=== PATIENT | male | born 1985 | race Caucasian/White ===

== ENCOUNTER 2021-10-25 19:27 | Inpatient (IN) ==
[2021-10-25 19:44] LABS: Basophils # (auto) 0.04 K/uL (0-0.2); Basophils % (auto) 0.3 %; Eosinophils # (auto) 0.13 K/uL (0-0.5); Eosinophils % (auto) 1.1 %; Hemoglobin 14.6 g/dL (14.0-18.0); Immature Granulocytes # (auto) 0.03 K/uL (0.00-0.02); Immature Granulocytes % (auto) 0.3 %; Lymphocytes # (auto) 2.13 K/uL (1.2-3.4); Lymphocytes % (auto) 18.1 %; Mean Corpuscular Hemoglobin 31.1 pg (25-34); Mean Corpuscular Volume 91.5 fL (80-100); Mean Platelet Volume 9.2 fL (7.4-10.4); Monocytes # (auto) 0.95 K/uL (0.11-0.59); Monocytes % (auto) 8.1 %; Neutrophils # (auto) 8.46 K/uL (1.4-6.5); Neutrophils % (auto) 72.1 %; Platelet Count 321 K/uL (130-400); RDW Coefficient of Variation 12.1 % (11.5-14.5); RDW Standard Deviation 41.3 fL (36.4-46.3); White Blood Count 11.74 K/uL (4.8-10.8)
[2021-10-25] MEDS ORDERED: SODIUM CHLORIDE 0.9% 1000ML 1,000 ML IV ONE (19:51)
[2021-10-25] MEDS ORDERED: MoRPHine SULFATE 4 MG/ML 1 ML CARP\\VIAL IV STA (19:51)
--- NOTE | 2021-10-25 19:54 | Emergency Department Note ---
Impression & Plan Acute diverticulitis, Intra-abdominal abscess ADMIT ED Provider Note Patient arrived to the ED via PRIVATE TRANSPORT HPI: The patient is a 35-year-old male who presents the emergency department the chief complaint of lower abdominal pain is been ongoing for the past week and a half. Patient states he does have a history of diverticulitis, states this pain feels similar to diverticulitis flare that he has had in the past. He states he previously has had complications including intra-abdominal abscess that did not require any surgical intervention, states he was treated with IV antibiotics at that time. Patient denies any nausea or vomiting, denies any diarrhea. Denies any chest pain or shortness of breath. On arrival here to the ED he is hemodynamically stable, he is saturating well on room air on my initial assessment, he is afebrile. ROS: -GI: Lower abdominal pain *10 point review systems was conducted and is otherwise negative unless stated above *Outpatient medications and allergy history reviewed PE: General: Alert, NAD HEENT: Normocephalic, atraumatic, trachea midline Eyes: Extraocular eye movement is intact, no scleral erythema Pulmonary: Clear to auscultation bilaterally, no wheezing Cardio: Regular rate and rhythm GI: Abdomen is tender to palpation in the lower abdomen bilaterally, there is guarding without rigidity : No suprapubic tenderness MSK: No evidence of trauma or malformation of the extremities, no edema Skin: No evidence of rash Neuro: Alert, no focal deficits Psychiatric: Cooperative residential fee appraiser: - An order was placed for continuous cardiac monitoring - Patient was noted to be in sinus rhythm with rate of 95 Medical Decision Making: Patient presented with lower abdominal pain, he does have a history of diverticulitis, he is uncomfortable on exam with tenderness in the lower abdomen. Labwork shows evidence of a very mild leukocytosis, there is no acute kidney injury, no transaminitis, hemoglobin is stable. There are no critical electrolyte abnormalities. Interventions included IV fluid, IV analgesia with morphine, IV Zosyn. Imaging was obtained including CT imaging of the abdomen and pelvis with contrast and unfortunately does show evidence of diverticulitis flare of the sigmoid colon with apparent perforation with a locule of gas and fluid reflecting a possible abscess. On re-evaluation the patient is still hemodynamically stable, he tells me his pain is improved following IV analgesia case was discussed with on-call general surgery midlevel provider, Hardeep Hernandez, who evaluated the patient at the bedside. Patient will be admitted to the surgical service for further care and continuation of IV antibiotics and evaluation for possible surgical intervention. Patient was admitted under the service of Dr. Kalen Ureña for further care. Diagnosis: 1. Acute diverticulitis flare with perforation and abscess 2. Leukocytosis 3. Abdominal pain Disposition: Admission [facility] PradhanDO Emergency Medicine Past Med/Surg History Social History Smoking Status: Current every day smoker Feels Safe at Home: Yes Allergies Allergies Allergy/AdvReac Type Severity Reaction Status Date / Time No Known Allergies Allergy Unverified 05/04/20 09:03 Results & Data (ED) Vital Signs Vital Signs - 24 hr 10/25/21 19:28 10/25/21 19:47 Temperature 36.9 C Temperature Source Temporal Artery Scan Pulse Rate 104 H Pulse Rate [Finger] 96 H Respiratory Rate 18 20 Respiratory Effort / Characteristics Non-Labored Spontaneous Respiratory Depth Normal Blood Pressure 168/88 H Blood Pressure [Right Arm] 154/106 H Blood Pressure Mean 114 Blood Pressure Mean [Right Arm] 122 Pulse Oximetry 99 99 Oxygen Delivery Method Room Air Room Air Sepsis Recent Fever Within 48 Hours No Sepsis New/Unexplained Change in Mental Status No Sepsis Action Taken by Nursing No Action Required Laboratory Data Result diagrams: 10/25/21 19:34 10/25/21 19:34 Lab Results 10/25/21 10/25/21 10/25/21 Range/Units 19:34 19:34 19:51 WBC 11.74 H (4.8-10.8) K/uL RBC 4.70 (4.7-6.1) M/uL Hgb 14.6 (14.0-18.0) g/dL Hct 43.0 (42-52) % MCV 91.5 (80-100) fL MCH 31.1 (25-34) pg MCHC 34.0 (32-36) g/dL RDW Std Deviation 41.3 (36.4-46.3) fL RDW Coeff of Kyle 12.1 (11.5-14.5) % Plt Count 321 (130-400) K/uL MPV 9.2 (7.4-10.4) fL Immature Gran % (Auto) 0.3 % Neut % (Auto) 72.1 % Lymph % (Auto) 18.1 % Gilliam % (Auto) 8.1 % Eos % (Auto) 1.1 % Baso % (Auto) 0.3 % Neut # (Auto) 8.46 H (1.4-6.5) K/uL Lymph # (Auto) 2.13 (1.2-3.4) K/uL Gilliam # (Auto) 0.95 H (0.11-0.59) K/uL Eos # (Auto) 0.13 (0-0.5) K/uL Baso # (Auto) 0.04 (0-0.2) K/uL Immature Gran # (Auto) 0.03 H (0.00-0.02) K/uL Sodium 142 (136-145) mmol/L Potassium 4.1 (3.5-5.1) mmol/L Chloride 109 H (98-107) mmol/L Carbon Dioxide 29 (21-32) mmol/L Anion Gap 5.0 (3-11) BUN 22 H (7-18) mg/dl Creatinine 0.82 (0.6-1.4) mg/dl Est Cr Clr Drug Dosing 128.6 ml/min Est GFR ( Amer) 131.9 ml/min Est GFR (Non-Af Amer) 113.8 ml/min BUN/Creatinine Ratio 26.7 H (10-20) Glucose 93 (70-99) mg/dl Calcium 9.2 (8.5-10.1) mg/dl Total Bilirubin 0.4 (0.2-1) mg/dl AST 13 L (15-37) U/L ALT 24 (12-78) Alkaline Phosphatase 73 (45-117) U/L Total Protein 7.6 (6.4-8.2) gm/dl Albumin 3.7 (3.4-5.0) gm/dl Globulin 3.9 (2.5-4.0) gm/dl Albumin/Globulin Ratio 0.9 (0.9-2) Lipase 66 L (73-393) U/L Urine Color Yellow Urine Appearance Clear (Clear) Urine pH 7.0 (4.5-7.5) Ur Specific [place] 1.022 (1.000-1.030) Urine Protein Negative (Negative) Urine Glucose (UA) Negative (Negative) Urine Ketones Negative (Negative) Urine Blood 1+ H (Negative) Urine Nitrite Negative (Negative) Urine Bilirubin Negative (Negative) Urine Urobilinogen Negative (Negative) Ur Leukocyte Esterase Negative (Negative) Urine WBC (Auto) 1-5 (0-5) /hpf Urine RBC (Auto) 5-10 H (0-4) /hpf U Hyaline Cast (Auto) 0 (0-5) /lpf U Epithel Cells (Auto) 5-10 H (0-5) /lpf Urine Bacteria (Auto) Negative (Negative) Administered Medications Discontinued Medications Sodium Chloride (Nss 1000ml) 1,000 mls @ 999 mls/hr IV .Q1H1M ONE Stop: 10/25/21 20:51 Last Admin: 10/25/21 20:00 Dose: 999 mls/hr Documented by: [id number] Ioversol (Optiray 320 100ml) 94 ml IV ONCE ONE Stop: 10/25/21 20:15 Last Admin: 10/25/21 20:14 Dose: 94 ml Documented by: [id number] Morphine Sulfate (Morphine Sulfate 4 Mg/Ml 1 Ml Carp\Vial) 4 mg IV NOW STA Stop: 10/25/21 19:52 Last Admin: 10/25/21 20:00 Dose: 4 mg Documented by: [id number] Imaging Data Radiologist's Impression: Abdomen/Pelvis CT 10/25/21 19:51 CT abd pelvis IV con only CLINICAL HISTORY: Lower abdominal pain x1 week, history of DV TECHNIQUE: Helical axial images of the abdomen and pelvis were obtained and displayed. Automated dose lowering techniques and/or adjustment according to patient size were utilized for this exam. This exam was performed with intraven ous contrast. COMPARISON: None available at the time of this dictation. FINDINGS: Lower chest: No acute abnormality Liver: Unremarkable. No focal lesions are seen. Gallbladder and biliary tree: Patient is status post cholecystectomy. Physiologic prominence of the biliary ducts is noted. Pancreas: Pancreatic duct is mildly prominent measuring 3 mm in diameter. Spleen: Unremarkable. Adrenals: Unremarkable. Kidneys and ureters: Unremarkable. Bladder: Unremarkable. Reproductive organs: Unremarkable. Bowel: There is wall thickening about the sigmoid colon. There is a collection of gas and fluid adjacent to the sigmoid colon with surrounding fat stranding. Lymph nodes Retroperitoneal: Unremarkable. Mesenteric: Unremarkable. Pelvic: Unremarkable. Peritoneum: Normal. No evidence of pneumoperitoneum. Vessels: Unremarkable. Abdominal wall: A fat-containing umbilical hernia is seen. Bones: Unremarkable. IMPRESSION: Sigmoid diverticulitis. Collection of gas and fluid adjacent to the sigmoid colon may reflect perforation and abscess formation. ACT 112: Negative or not required by law. Electronically signed by: Samm Sánchez M.D. 10/25/2021 8:31 PM Discharge Plan Visit Data Chief Complaint: Abdominal Pain Stated Complaint: ABD PAIN ED Provider: Morro Pradhan Discharge Problem: Acute diverticulitis, Intra-abdominal abscess Forms Stand Alone Forms: [facility] Referrals Referrals: Pro,Leonel Wood MD [Primary Care Provider] -
[2021-10-25 20:01] LABS: Albumin Level 3.7 gm/dl (3.4-5.0); BUN Creatinine Ratio 26.7 (10-20); Calcium 9.2 mg/dl (8.5-10.1); Creatinine Clr Calc Pharmacy 128.6 ml/min; Est GFR (African American) 131.9 ml/min; Est GFR (Non-African American) 113.8 ml/min; Potassium 4.1 mmol/L (3.5-5.1)
[2021-10-25 20:02] LABS: Appearance Urine Clear (Clear); Bacteria Urine Automated Negative (Negative); Bilirubin Urine Negative (Negative); Blood Urine 1+ (Negative); Cast Urine Automated 0 /lpf (0-5); Color Urine Yellow; Glucose Urine UA Negative (Negative); Ketones Urine Negative (Negative); Leukocyte Esterase Urine Negative (Negative); Nitrite Urine Negative (Negative); Protein Urine Negative (Negative); Specific Gravity Urine 1.022 (1.000-1.030); Urobilinogen Urine Negative (Negative)
[2021-10-25 20:04] LABS: Albumin Globulin Ratio 0.9 (0.9-2); Bilirubin,Total 0.4 mg/dl (0.2-1); Globulin 3.9 gm/dl (2.5-4.0); Total Protein 7.6 gm/dl (6.4-8.2)
[2021-10-25] MEDS ORDERED: OPTIRAY 320 100ml IV ONE (20:14)
--- NOTE | 2021-10-25 20:32 | CT Scan Report ---
CT abd pelvis IV con only CLINICAL HISTORY: Lower abdominal pain x1 week, history of DV TECHNIQUE: Helical axial images of the abdomen and pelvis were obtained and displayed. Automated dose lowering techniques and/or adjustment according to patient size were utilized for this exam. This e xam was performed with intravenous contrast. COMPARISON: None available at the time of this dictation. FINDINGS: Lower chest: No acute abnormality Liver: Unremarkable. No focal lesions are seen. Gallbladder and biliary tree: Patient is status post cholecystectomy. Physiologic prominence of the b iliary ducts is noted. Pancreas: Pancreatic duct is mildly prominent measuring 3 mm in diameter. Spleen: Unremarkable. Adrenals: Unremarkable. Kidneys and ureters: Unremarkable. Bladder: Unremarkable. Reproductive organs: Unremarkable. Bowel: There is wall thickening about the sigmoid colon. There is a collection of gas and fluid adjac ent to the sigmoid colon with surrounding fat stranding. Lymph nodes Retroperitoneal: Unremarkable. Mesenteric: Unremarkable. Pelvic: Unremarkable. Peritoneum: Normal. No evidence of pneumoperitoneum. Vessels: Unremarkable. Abdominal wall: A fat-containing umbilical hernia is seen. Bones: Unremarkable. IMPRESSION: Sigmoid diverticulitis. Collection of gas and fluid adjacent to the sigmoid colon may reflect perfora tion and abscess formation. ACT 112: Negative or not required by law. Electronically signed by: Samm Sánchez M.D. 10/25/2021 8:31 PM
[2021-10-25] MEDS ORDERED: CEFEPIME 1,000 MG in SYRINGE 0 ML IV STA (20:38)
[2021-10-25] MEDS ORDERED: PIPERACILL/TAZOBAC CONSULT ACTIVE PRN ×2 (20:48→22:49)
[2021-10-25] MEDS ORDERED: PIPERACILLIN/TAZOBACTAM 4.5 GM/120 ML BAG IV ONE (20:48)
--- NOTE | 2021-10-25 21:20 | History & Physical Report ---
Date of Service October 25, 2021 Assessment & Plan (1) Acute diverticulitis: Plan: Due to the patient's clinical presentation, labs, and CT scan findings he will be admitted to the hospital proceeding as follows: �We will initiate broad-spectrum antibiotics. The treating emergency room physician has ordered Zosyn which we will continue �We will implement bowel rest with n.p.o. status. (The patient may have an occasional ice chip) �Hydration measures with IV fluids will be employed �We will follow serial labs I have discussed with the patient that we would like to avoid surgical intervention with acute diverticulitis as surgery in this clinical setting would likely require temporary colostomy. I discussed the patient is expected clinical course and as he clinically improves we will advance his diet beginning with clear liquids. I did discuss with him that he will likely require oral antibiotics at time of discharge. I also discussed with him that would be beneficial to have an up-to-date colonoscopy once he has adequately recovered from this acute episode. He expresses understanding and had all of his questions answered We will use Lovenox for DVT prevention History of Present Illness Chief Complaint: Abdominal pain Primary Care Provider: Leonel Johnson MD This is a 35-year-old male who presented [facility] emergency department secondary to abdominal pain. Patient notes that the pain has been present for approximately 10 days and is located primarily in the left lower quadrant. He admits he did not take his temperature but he did feel feverish. He denies any nausea or vomiting. He does report some obstipation but when he does move his bowels it is very loose. He denies any hematochezia, melena, or bright red blood per rectum. He notes that the pain is improved with medications that were administered in the emergency department. He denies any provocative factors. Patient does report a history of diverticulitis approximately 6 years ago. The patient reports that he was hospitalized but did not require any percutaneous intervention or surgical intervention. Patient does report that he has had a colonoscopy in the past but he cannot remember when his most recent colonoscopy was. He does report a prior history of abdominal surgery in the form of a laparoscopic cholecystectomy. In the emergency department patient had labs and imaging which I independently reviewed. CT scan of the abdomen and pelvis showed the patient had sigmoid diverticulitis with a gas collection and fluid collection adjacent to the sigmoid colon concerning for a perforation and developing abscess.Labs include a CBC her white blood cell count was 11.7. Hemoglobin, hematocrit, and platelet count were all within normal range. Chemistry profile showed sodium, potassium, and creatinine were within normal range. His BUN had a slight elevation at 22. There is no significant elevation of LFTs. Urinalysis was not indicative of infection. A Covid test was performed and was pending. At the time of my interview the patient was in no distress. His pain was noted to be well controlled. Allergies Allergy/AdvReac Type Severity Reaction Status Date / Time No Known Allergies Allergy Unverified 10/25/21 22:34 Home Medications Medication Instructions Recorded Confirmed Type sucralfate 1 gram tablet 1 g PO QAM 10/25/21 10/25/21 History Past Med/Surg History Surgical History Hx of cholecystectomy Social History Smoking Status: Current every day smoker Cigarettes Per Day: 1/2 pack per day; Second Hand Exposure: No; Do You Dip or Chew Tobacco: No; Tobacco Cessation Education Requested by Patient: No Hx Alcohol Use: Yes Alcohol type: beer and wine Hx Substance Use: No Preferred Language: [place] Islander Communication Ability: Effective Card Room Manager Required: No Beliefs That Will Affect Care: None Current Living Situation: Spouse Other Information That Helps Us Care for You: No Feels Safe at Home: Yes Safety Concerns: Feels Safe At This Time Assistive Devices: None Surgical History Hx of cholecystectomy Social History Smoking Status: Current every day smoker Cigarettes Per Day: 1/2 pack per day; Second Hand Exposure: No; Do You Dip or Chew Tobacco: No; Tobacco Cessation Education Requested by Patient: No Hx Alcohol Use: Yes Alcohol type: beer and wine Hx Substance Use: No Preferred Language: [place] Island[place] Communication Ability: Effective Card Room Manager Required: No Beliefs That Will Affect Care: None Current Living Situation: Spouse Other Information That Helps Us Care for You: No Feels Safe at Home: Yes Safety Concerns: Feels Safe At This Time Assistive Devices: None Review of Systems Constitutional: + fever; no chills Eyes: no diplopia Ear, Nose, Mouth, Throat: no ear pain Respiratory: no cough and no dyspnea Cardiovascular: no chest pain Gastrointestinal: + abdominal pain and + diarrhea/loose stools; no nausea, no vomiting and no blood in stools Genitourinary: no dysuria Musculoskeletal: no back pain Integumentary: no rash Neurologic: no localized weakness Physical Exam Constitutional: well developed and well nourished; no acute distress Eyes: PERRL ENMT: Ears: no hearing impairment Mouth: no oropharynx abnormality Neck: trachea midline Respiratory: normal respiratory effort, lungs clear to auscultation Cardiovascular: Rate/Rhythm: regular rate Gastrointestinal (Abdomen): Abdomen is soft and nondistended. Pain is noted with deep palpation in the left lower quadrant with some minor rebound tenderness. Musculoskeletal: No calf tenderness. No gross orthopedic abnormalities Skin: no rashes Neurologic: moves all extremities Psychiatric: A+Ox3, euthymic affect Results & Data Results & Data ([facility]) Vital Signs (Past 12 Hours) Vital Signs Temp Pulse Pulse Resp BP BP Pulse Ox 10/25/21 19:47 96 H 20 154/106 H 99 10/25/21 19:28 36.9 C 104 H 18 168/88 H 99 Code Status & VTE Plan Code Status Patient be a level one full code Supervising Physician Co-Signing Physician Notes I personally saw and evaluated the patient with Darrel Hernandez PA-C and agree with the assessment and plan. 35-year-old male with acute sigmoid diverticulitis CT images and results reviewed, unsure he has a true microperforation adjacent to his sigmoid We will admit for IV antibiotics, keep him n.p.o. We will monitor his progress on IV antibiotics PG Care Time/CCT Total # of Minutes Spent Total Time Spent with Patient: Total time spent is greater than 50% in coordination of care (as documented) at patient's floor/unit and/or counseling patient: Coding Level of Care Code 68810 Initial Inpt Care Lvl 3 Diagnoses Acute diverticulitis K57.92
[2021-10-25] MEDS ORDERED: ONDANSETRON INJ 2 MG/ML 2 ML VIAL IV PRN (22:49)
[2021-10-25] MEDS ORDERED: ACETAMINOPHEN 1,000 MG/100 ML VIAL IV PRN (22:49)
[2021-10-25] MEDS ORDERED: MoRPHine SULFATE 4 MG/ML 1 ML CARP\\VIAL IV PRN (22:49)
[2021-10-25] MEDS: LACTATED RINGER'S 1,000 ML IV SCH (23:58)
[2021-10-26] MEDS: PIPERACILLIN/TAZOBACTAM 3.375 GM in DEXTROSE 5% 100 ML IV SCH ×2 (02:03→09:53)
[2021-10-26 06:23] LABS: Basophils # (auto) 0.03 K/uL (0-0.2); Basophils % (auto) 0.3 %; Eosinophils % (auto) 2.1 %; Hematocrit (blood only) 38.5 % (42-52); Hemoglobin 12.9 g/dL (14.0-18.0); Immature Granulocytes # (auto) 0.01 K/uL (0.00-0.02); Immature Granulocytes % (auto) 0.1 %; Lymphocytes # (auto) 2.05 K/uL (1.2-3.4); Lymphocytes % (auto) 21.4 %; Mean Corpuscular Hemoglobin 30.2 pg (25-34); Mean Corpuscular Hgb Conc 33.5 g/dL (32-36); Mean Corpuscular Volume 90.2 fL (80-100); Mean Platelet Volume 9.3 fL (7.4-10.4); Monocytes # (auto) 0.89 K/uL (0.11-0.59); Monocytes % (auto) 9.3 %; Neutrophils # (auto) 6.42 K/uL (1.4-6.5); Neutrophils % (auto) 66.8 %; Platelet Count 247 K/uL (130-400); RDW Coefficient of Variation 12.3 % (11.5-14.5); RDW Standard Deviation 40.7 fL (36.4-46.3); Red Blood Count 4.27 M/uL (4.7-6.1)
[2021-10-26 06:57] LABS: Calcium 8.5 mg/dl (8.5-10.1); Creatinine Clr Calc Pharmacy 138.7 ml/min; Est GFR (Non-African American) 117.4 ml/min; Potassium 3.7 mmol/L (3.5-5.1)
--- NOTE | 2021-10-26 07:46 | Surgery Progress Note ---
Date of Service October 26, 2021 Assessment & Plan (1) Acute diverticulitis: Plan: improved, WBC 9 start on clears recheck later today seen with Dr. Ureña Admission and Anticipated Discharge Date Admission Date: October 25, 2021 Supervising Physician Co-Signing Physician Notes I personally saw and evaluated the patient with Farhad Solis PA-C and agree with the assessment and plan. 35-year-old male with acute sigmoid diverticulitis Trial clear liquids Continue IV antibiotics while inpatient, his leukocytosis has resolved He has minimal abdominal pain at this point, if he tolerates clear liquids he can be advanced to a low fiber diet for lunch and possibly discharge later today He will need a 14-day course of Augmentin status post discharge Subjective less pain, no fevers Physical Exam Gastrointestinal (Abdomen): Inspection/Auscultation: abdomen not distended Percussion/Palpation: + abdomen tender (minimal) and abdomen soft Results & Data ([facility]) Vital Signs (Past 12 Hours) Vital Signs Temp Pulse Resp BP BP Pulse Ox 10/26/21 07:30 36.7 C 83 18 114/75 97 10/25/21 22:30 37.5 C 90 18 135/77 96 10/25/21 21:47 79 20 125/80 98 10/25/21 19:47 96 H 20 154/106 H 99 PG Care Time/CCT Total # of Minutes Spent Total Time Spent with Patient: Total time spent is greater than 50% in coordination of care (as documented) at patient's floor/unit and/or counseling patient: Coding Level of Care Code 28527 Subseq Hosp Care Lvl 1 Diagnoses Acute diverticulitis K57.92
[2021-10-26] MEDS ORDERED: ENOXAPARIN INJ 40 MG/0.4 ML SYR SQ SCH (09:00)
[2021-10-26] MEDS: LACTATED RINGER'S 1,000 ML IV SCH (09:50)
--- NOTE | 2021-10-27 09:47 | Discharge Summary ---
Date of Service October 26, 2021 Admission HPI Per Admitting Provider This is a 35-year-old male who presented [facility] emergency department secondary to abdominal pain. Patient notes that the pain has been present for approximately 10 days and is located primarily in the left lower quadrant. He admits he did not take his temperature but he did feel feverish. He denies any nausea or vomiting. He does report some obstipation but when he does move his bowels it is very loose. He denies any hematochezia, melena, or bright red blood per rectum. He notes that the pain is improved with medications that were administered in the emergency department. He denies any provocative factors. Patient does report a history of diverticulitis approximately 6 years ago. The patient reports that he was hospitalized but did not require any percutaneous intervention or surgical intervention. Patient does report that he has had a colonoscopy in the past but he cannot remember when his most recent colonoscopy was. He does report a prior history of abdominal surgery in the form of a laparoscopic cholecystectomy. In the emergency department patient had labs and imaging which I independently reviewed. CT scan of the abdomen and pelvis showed the patient had sigmoid diverticulitis with a gas collection and fluid collection adjacent to the sigmoid colon concerning for a perforation and developing abscess.Labs include a CBC her white blood cell count was 11.7. Hemoglobin, hematocrit, and platelet count were all within normal range. Chemistry profile showed sodium, potassium, and creatinine were within normal range. His BUN had a slight elevation at 22. There is no significant elevation of LFTs. Urinalysis was not indicative of infection. A Covid test was performed and was pending. At the time of my interview the patient was in no distress. His pain was noted to be well controlled. Principal Diagnosis Complicated diverticulitis Discharge Exam Constitutional WD/WN, vitals as above Gastrointestinal (Abdomen) Inspection/Auscultation: abdomen not distended Percussion/Palpation: + abdomen tender (minimal) and abdomen soft Discharge Data Allergies Allergy/AdvReac Type Severity Reaction Status Date / Time No Known Allergies Allergy Unverified 10/25/21 22:34 Consultations 10/25/21 21:08 ED Decision to Admit Stat Ordered Studies 10/25/21 19:51 CT abd pelvis IV con only Stat Hospital Course (1) Acute diverticulitis: 35 y/o male presented to the ER with abdominal pain. White count was 11,[address] was consistent with diverticulitis with microperforation. He was admitted to the surgical service and started on IV antibiotics. The next morning his white count had normalized and he had minimal tenderness. He completed 24 hours of IV antibiotics and was able to tolerate a liquid diet. He was stable for discharge home on oral antibiotics and slowly advancing diet so that he could make a previously scheduled appointment for a dental procedure. Total Time Total Time Spent Total Time Spent (In Minutes): 15 Discharge Plan Discharge Items Patient Disposition: Home - Self-Care Reason For Visit: DIVERTICULITIS Discharge Diagnosis: diverticulitis Activity: Per Instructions section Lifting: Gradually increase as tolerated Bathing: No limitations Exercise/Sports: As tolerated Driving/Machine Use: Resume 1 day after discharge Non-emergency contact: Primary Care Provider and Surgeon Call non-emergency contact if: you have any medication questions, your symptoms worsen, your pain is not controlled, your pain is concerning for you, you have a fever and your temperature is above 101.5 Follow-up/Referrals: Leonel Johnson MD [Primary Care Provider] - 10/31/21 11:15 am Kalen Ureña DO [Physician] - 11/08/21 1:00 pm (Please call the office to schedule follow up in clinic within 2 weeks) Diet: Other - See Diet Comment Addtl Attending Provider Instructions: Continue on clear liquid diet through the remainder of today Tomorrow you may start introducing full liquids (such as anything you can eat with a spoon). If that goes well you may slowly start a low fiber diet and continue this for a couple weeks (a handout will be provided to you prior to dis charge with examples of low fiber diet foods) Please complete the full course of antibiotic prescribed to you Pending Studies at Discharge: No Stand-Alone Forms: My [facility], Work/School Release, Smoking Cessation Medications and DC Order Prescriptions: New amoxicillin-pot clavulanate [Augmentin] 875-125 mg tablet 1 tab PO BID 14 Days Qty: 28 RF: 0 Continued sucralfate 1 gram tablet 1 g PO QAM RF: 0 Discharge Orders: Discharge Order (Routine); Ordered 10/26/21 Ordered By: Shira Rawls/Other Patient Handouts: Low-Fiber Diet Admission Data Admit Date/Time: 10/25/21 21:21 Attending Provider: Kalen Ureña Admit Provider: Kalen Ureña Primary Care Provider: Leonel Johnson Other Providers: Kalen Ureña Other Interventions: Discharge Summary Assessment (RN) Last Done: 10/26/21 13:40 Coding Level of Care Code D/C DAY MANAGEMENT <30 MINS Diagnoses Acute diverticulitis K57.92
== END 2021-10-26 14:50 | disposition home or self-care (01) | DRG 392 ==
LOC: ED 19:27 → 3N 21:21
DX: F17.210 Nicotine dependence, cigarettes, uncomplicated; K57.20 Diverticulitis of large intestine with perforation and abscess without bleeding